=== PATIENT | male | born 1930 | race Caucasian/White ===

== ENCOUNTER → 2018-04-30 | Outpatient (CLI) | payer MEDICARE, OTHER ==
[~2018-04-30] MED LIST: BARIUM SUSPENSION 2.1% (VANILLA SILQ) 450 ML PO ONE; IOHEXOL 350 MG/ML 100 ML (OMNIPAQUE 350) VIAL IV ONE; NS 250 ML (IVPB) BAG IV ONE
--- NOTE | 2018-04-30 15:54 | Diagnostic Imaging Report ---
PROCEDURE: CT chest with contrast, CT abdomen and pelvis with and without contrast. TECHNIQUE: Pre and post intravenous contrast axial imaging of the abdomen and pelvis and post contrast axial imaging of the chest were performed. INDICATION: Follicular lymphoma. COMPARISON: No prior studies are available for comparison. FINDINGS: CT chest: A left chest wall port has the tip in the SVC. No axillary lymphadenopathy is detected. There are some small calcified lymph nodes in the mediastinum and wily. No pathologically enlarged nodes are detected. No pericardial or pleural fluid is identified. Calcified granuloma in the right upper lobe is noted. There is some scarring in the left lower lobe and left upper lobe. No noncalcified parenchymal mass is seen. IMPRESSION: Essentially unremarkable CT of the chest. No thoracic lymphadenopathy or pulmonary metastatic disease is seen. Calcified lymph nodes are present, as described which may be owing to treated lymphoma or prior granulomatous exposure. CT abdomen and pelvis: No discrete liver mass is identified. The gallbladder is surgically absent. Pancreas and spleen are unremarkable. No adrenal mass is identified. Circumscribed renal low densities are present, largest on the right measuring 5 cm, and are most consistent with cysts. The aorta is calcified but nonaneurysmal. No central retroperitoneal or mesenteric lymphadenopathy is seen. No definite iliac or inguinal lymphadenopathy is identified. Bladder is unremarkable. The prostate is enlarged measuring 5.9 cm AP x 6.6 cm transverse. There is a fat-containing left inguinal hernia. The bowel loops are normal in caliber. No obstruction is seen. There is diverticulosis of the sigmoid colon but no evidence of acute diverticulitis. There is no ascites. IMPRESSION: 1. There is no evidence of abdominal or pelvic lymphadenopathy. 2. Bilateral renal cysts. 3. Uncomplicated sigmoid diverticulosis. 4. Prostatomegaly. Dictated by: Dictated on workstation # [id number]
== END ==
LOC: RAD 13:44
PROVIDERS: ATTEND Internal Medicine Hematology & Oncology
DX: C82.90 Follicular lymphoma, unspecified, unspecified site (principal); N28.1 Cyst of kidney, acquired; K57.30 Diverticulosis of large intestine without perforation or abscess without bleeding; N40.0 Benign prostatic hyperplasia without lower urinary tract symptoms
CPT/HCPCS: 71260; 74178

== ENCOUNTER 2018-10-18 10:10 | Outpatient (RCR) | payer MEDICARE, OTHER ==
[2018-07-26 10:49] LABS: BASOPHILS % (AUTO) 0 % (0-10); EOSINOPHILS # (AUTO) 0.1 10^3/uL (0.0-0.3); EOSINOPHILS % (AUTO) 2 % (0-10); HEMATOCRIT 45 % (40-54); HEMOGLOBIN 14.7 G/DL (13.3-17.7); LYMPHOCYTES # (AUTO) 0.6 X 10^3 (1.0-4.0); LYMPHOCYTES % (AUTO) 8 % (12-44); MEAN CORPUSCULAR HEMOGLOBIN 30 PG (25-34); MEAN CORPUSCULAR HGB CONC 33 G/DL (32-36); MEAN CORPUSCULAR VOLUME 90 FL (80-99); MEAN PLATELET VOLUME 9.3 FL (7.4-10.4); MONOCYTES # (AUTO) 0.8 X 10^3 (0.0-1.0); MONOCYTES % (AUTO) 11 % (0-12); NEUTROPHILS # (AUTO) 5.8 X 10^3 (1.8-7.8); NEUTROPHILS % (AUTO) 79 % (42-75); PLATELET COUNT 247 10^3/uL (130-400); RED CELL DISTRIBUTION WIDTH 13.4 % (10.0-14.5); WHITE BLOOD COUNT 7.3 10^3/uL (4.3-11.0)
[2018-07-26 11:13] LABS: ALBUMIN 4.5 GM/DL (3.2-4.5); BILIRUBIN,TOTAL 0.6 MG/DL (0.1-1.0); CALCIUM 10.2 MG/DL (8.5-10.1); CREATININE SERUM 1.4 MG/DL (0.60-1.30); POTASSIUM 4.4 MMOL/L (3.6-5.0); TOTAL PROTEIN 6.9 GM/DL (6.4-8.2)
[2018-10-18 10:29] LABS: BASOPHILS % (AUTO) 1 % (0-10); EOSINOPHILS # (AUTO) 0.1 10^3/uL (0.0-0.3); EOSINOPHILS % (AUTO) 2 % (0-10); HEMATOCRIT 44 % (40-54); HEMOGLOBIN 14.7 G/DL (13.3-17.7); LYMPHOCYTES # (AUTO) 0.7 X 10^3 (1.0-4.0); LYMPHOCYTES % (AUTO) 10 % (12-44); MEAN CORPUSCULAR HEMOGLOBIN 30 PG (25-34); MEAN CORPUSCULAR HGB CONC 33 G/DL (32-36); MEAN CORPUSCULAR VOLUME 91 FL (80-99); MEAN PLATELET VOLUME 9.5 FL (7.4-10.4); MONOCYTES # (AUTO) 0.8 X 10^3 (0.0-1.0); MONOCYTES % (AUTO) 11 % (0-12); NEUTROPHILS # (AUTO) 5.5 X 10^3 (1.8-7.8); NEUTROPHILS % (AUTO) 77 % (42-75); PLATELET COUNT 282 10^3/uL (130-400); RED CELL DISTRIBUTION WIDTH 13.6 % (10.0-14.5); WHITE BLOOD COUNT 7.2 10^3/uL (4.3-11.0)
[2018-10-18 10:52] LABS: ALBUMIN 4.4 GM/DL (3.2-4.5); BILIRUBIN,TOTAL 0.4 MG/DL (0.1-1.0); CALCIUM 10.1 MG/DL (8.5-10.1); CREATININE SERUM 1.45 MG/DL (0.60-1.30); POTASSIUM 4.7 MMOL/L (3.6-5.0); TOTAL PROTEIN 6.6 GM/DL (6.4-8.2)
== END 2018-10-24 | disposition home or self-care (01) ==
LOC: ONC 10:10
PROVIDERS: ATTEND Internal Medicine Hematology & Oncology
DX: Z08 Encounter for follow-up examination after completed treatment for malignant neoplasm (principal); Z85.71 Personal history of Hodgkin lymphoma; I11.0 Hypertensive heart disease with heart failure; I50.9 Heart failure, unspecified; J44.9 Chronic obstructive pulmonary disease, unspecified; K21.9 Gastro-esophageal reflux disease without esophagitis; N40.1 Benign prostatic hyperplasia with lower urinary tract symptoms; Z79.899 Other long term (current) drug therapy
CPT/HCPCS: 36415; 80053; 83615; 85025; 99213

== ENCOUNTER → 2018-10-22 | Outpatient (CLI) | payer MEDICARE, OTHER ==
[~2018-10-22] MED LIST changes: -BARIUM SUSPENSION 2.1% (VANILLA SILQ) 450 ML PO ONE; +CATHETER FLUSH 10 ML SYR IV PRN; +NS 100 ML (IVPB) BAG IV ONE; -NS 250 ML (IVPB) BAG IV ONE; +RECEIVED CONTRAST (Hold Metformin) IV SCH
--- NOTE | 2018-10-22 22:31 | Diagnostic Imaging Report ---
PROCEDURE: CT abdomen and pelvis with contrast. TECHNIQUE: Multiple contiguous axial images were obtained through the abdomen and pelvis after administration of intravenous contrast. DATE: October 22, 2018. COMPARISON: CT chest, abdomen and pelvis April 30, 2018. INDICATION: 88-year-old male, cough. History of lymphoma. Right hip pain. FINDINGS: There is a 4 mm benign calcified left lower lobe granuloma on axial image 9. There are predominantly linear opacities in the left lower lobe. There is partial opacification of the left lower lobe bronchi. This is a new finding since comparison exam of April 30, 2018. This potentially could relate to aspiration and/or atelectasis. The opacification within the left lower lobe bronchi is not specific. The additional visualized portions of the lung bases are grossly clear. The heart is not enlarged. There is no identified pericardial effusion. There are atherosclerotic calcifications. The liver is unremarkable in size and contour. There is no identified liver lesion. The patient is status post cholecystectomy. There is no identified intrahepatic or extrahepatic bile duct dilation. The main pancreatic duct is not abnormally dilated. Unremarkable appearance of the pancreatic parenchyma. The spleen is not enlarged. The adrenal glands are unremarkable. There is a low-attenuation right renal lesion on axial image 34 which measures up to 5.3 cm in size with internal attenuation diagnostic for a benign renal cyst. There is a benign left renal cyst on axial image 43 which measures 2.4 cm in size. There are additional adjacent benign smaller left renal cysts. The urinary collecting systems are not distended. There is no identified renal or ureteral stone. The prostate gland is enlarged and does indent on the posterior aspect of the urinary bladder. The urinary bladder is otherwise unremarkable in appearance. There is diverticulosis without evidence of acute diverticulitis. The appendix is best seen on axial image 54 and adjacent sequential images. There is no evidence of acute appendicitis. There is no free intraperitoneal air. There is no drainable fluid collection. There is no free pelvic fluid. There are atherosclerotic calcifications. There are surgical clips in the right inguinal region. There is a small fat-containing left inguinal hernia. There is no identified abnormally enlarged lymph node in the abdomen or pelvis which meets CT size criteria for adenopathy. There is severe osteoarthritis of both hips. There is sclerosis in the right greater than left femoral heads which potentially could relate to avascular necrosis. There is no identified destructive bone lesion. There are degenerative changes of the spine. There is no otherwise identified acute bony abnormality. IMPRESSION: CT ABDOMEN AND PELVIS. 1. Severe osteoarthritis of the bilateral hips. 2. Sclerosis in the right greater than left femoral heads which potentially could relate to osteonecrosis. This would be more optimally evaluated with dedicated MRI. 3. No identified destructive bone lesion. 4. Enlarged prostate which indents on the urinary bladder. 5. No identified acute abnormality within the abdomen or pelvis. Dictated by: Dictated on workstation # [id number]
== END ==
LOC: RAD 13:25
PROVIDERS: ATTEND Internal Medicine Hematology & Oncology
DX: C82.90 Follicular lymphoma, unspecified, unspecified site (principal); M16.0 Bilateral primary osteoarthritis of hip; M89.9 Disorder of bone, unspecified; N40.0 Benign prostatic hyperplasia without lower urinary tract symptoms; R05 Cough
CPT/HCPCS: 74177

== ENCOUNTER 2019-01-17 09:38 | Outpatient (RCR) | payer MEDICARE, OTHER ==
[2019-01-17 09:55] LABS: BASOPHILS % (AUTO) 0 % (0-10); EOSINOPHILS # (AUTO) 0.1 10^3/uL (0.0-0.3); EOSINOPHILS % (AUTO) 2 % (0-10); HEMATOCRIT 44 % (40-54); HEMOGLOBIN 14.7 G/DL (13.3-17.7); LYMPHOCYTES # (AUTO) 0.6 X 10^3 (1.0-4.0); LYMPHOCYTES % (AUTO) 9 % (12-44); MEAN CORPUSCULAR HEMOGLOBIN 31 PG (25-34); MEAN CORPUSCULAR HGB CONC 33 G/DL (32-36); MEAN CORPUSCULAR VOLUME 92 FL (80-99); MEAN PLATELET VOLUME 9.5 FL (7.4-10.4); MONOCYTES # (AUTO) 0.7 X 10^3 (0.0-1.0); MONOCYTES % (AUTO) 10 % (0-12); NEUTROPHILS # (AUTO) 5.3 X 10^3 (1.8-7.8); NEUTROPHILS % (AUTO) 79 % (42-75); PLATELET COUNT 232 10^3/uL (130-400); RED CELL DISTRIBUTION WIDTH 13.3 % (10.0-14.5); WHITE BLOOD COUNT 6.7 10^3/uL (4.3-11.0)
[2019-01-17 10:13] LABS: ALBUMIN 4.3 GM/DL (3.2-4.5); BILIRUBIN,TOTAL 0.6 MG/DL (0.1-1.0); CALCIUM 9.9 MG/DL (8.5-10.1); CREATININE SERUM 1.53 MG/DL (0.60-1.30); POTASSIUM 4.8 MMOL/L (3.6-5.0); TOTAL PROTEIN 6.5 GM/DL (6.4-8.2)
== END 2019-04-17 | disposition home or self-care (01) ==
LOC: ONC 09:38
PROVIDERS: ATTEND Internal Medicine Hematology & Oncology
DX: Z08 Encounter for follow-up examination after completed treatment for malignant neoplasm (principal); Z85.71 Personal history of Hodgkin lymphoma; I11.0 Hypertensive heart disease with heart failure; I50.9 Heart failure, unspecified; J44.9 Chronic obstructive pulmonary disease, unspecified; K21.9 Gastro-esophageal reflux disease without esophagitis; N40.1 Benign prostatic hyperplasia with lower urinary tract symptoms; Z79.899 Other long term (current) drug therapy
CPT/HCPCS: 36415; 80053; 83615; 85025; 99213